=== PATIENT | female | born 1970 | race Caucasian/White ===

== ENCOUNTER 2022-01-15 17:04 | Emergency (ER) | payer OTHER ==
[~2022-01-15] VITALS: Ht 165.1 cm; Wt 102.1 kg
[2022-01-15] MEDS ORDERED: GLIPIZIDE ER2.5 MG PO (18:09)
[2022-01-15] MEDS ORDERED: ROPINIROLE HCL4 M1 PO (18:10)
[2022-01-15] MEDS ORDERED: ALDACTONE25 MG PO (18:11)
[2022-01-15] MEDS ORDERED: LEVOTHYROXINE175 MC1 PO (18:11)
[2022-01-15] MEDS ORDERED: LIPITOR10 MG PO (18:12)
[2022-01-15] MEDS ORDERED: ROPINIROLE HCL0.5 MG PO (20:25)
[2022-01-15] MEDS ORDERED: CYCLOBENZAPRINE10 MG PO (20:25)
== END 2022-01-15 20:48 | disposition home or self-care (01) ==
LOC: ED 17:04
DX: S16.1XXA Strain of muscle, fascia and tendon at neck level, initial encounter (principal); Y04.8XXA Assault by other bodily force, initial encounter; E11.9 Type 2 diabetes mellitus without complications; E03.9 Hypothyroidism, unspecified; Z88.0 Allergy status to penicillin; Z88.5 Allergy status to narcotic agent; Z88.1 Allergy status to other antibiotic agents; Z79.899 Other long term (current) drug therapy
CPT/HCPCS: 72040; 96372; 99284-25; J1885